=== PATIENT | male | born 1975 | race Caucasian/White ===

== ENCOUNTER 2020-11-17 23:12 | Emergency (ER) | payer OTHER ==
[~2020-11-17 23:12] MED LIST: CLEOCIN HCL150 MG PO; FLEXERIL 10 MG10 MG PO; IBUPROFEN600 MG PO; PROTONIX40 MG PO
[2020-11-18] MEDS ORDERED: ERYTHROMYCIN O3.5 GM OS (01:03)
== END 2020-11-18 01:16 | disposition home or self-care (01) ==
LOC: ER1 23:12
DX: S05.02XA Injury of conjunctiva and corneal abrasion without foreign body, left eye, initial encounter (principal); Z88.0 Allergy status to penicillin; F17.210 Nicotine dependence, cigarettes, uncomplicated; X58.XXXA Exposure to other specified factors, initial encounter
CPT/HCPCS: 99282

== ENCOUNTER 2021-05-17 07:20 | Emergency (ER) | payer OTHER ==
[~2021-05-17 07:20] MED LIST changes: +ERYTHROMYCIN O3.5 GM OS
[2021-05-17] MEDS ORDERED: CLINDAMYCIN HC150 MG PO (07:52)
== END 2021-05-17 08:00 | disposition home or self-care (01) ==
LOC: ER1 07:20
DX: L03.113 Cellulitis of right upper limb (principal); F17.210 Nicotine dependence, cigarettes, uncomplicated
CPT/HCPCS: 99283

== ENCOUNTER 2021-09-14 19:21 | Emergency (ER) | payer OTHER ==
[~2021-09-14 19:21] MED LIST changes: +CLINDAMYCIN HC150 MG PO
[2021-09-14 20:23] LABS: HEMOGLOBIN 16.8 gm/dl (14.0-17.5); RED BLOOD COUNT 5.56 M/UL (4.20-5.50); WHITE BLOOD COUNT 10.8 K/UL (4.5-11.0)
[2021-09-14 20:57] LABS: BUN/CREATININE RATIO 19 (0-10)
== END 2021-09-14 22:56 | disposition left against medical advice (07) ==
LOC: ER1 19:21
PROVIDERS: Physician Assistant
DX: I10 Essential (primary) hypertension (principal); F17.210 Nicotine dependence, cigarettes, uncomplicated; R51.9 Headache, unspecified; R11.0 Nausea; Z88.0 Allergy status to penicillin
CPT/HCPCS: 70450; 71045; 80053; 82550; 82553; 83874; 83880; 84484; 85025; 85610; 85730; 93005; 99284

== ENCOUNTER 2021-12-22 18:19 | Emergency (ER) | payer OTHER ==
[2021-12-22 19:59] LABS: HEMOGLOBIN 14.4 gm/dl (14.0-17.5); RED BLOOD COUNT 4.86 M/UL (4.20-5.50); WHITE BLOOD COUNT 11.7 K/UL (4.5-11.0)
[2021-12-22 20:35] LABS: BUN/CREATININE RATIO 19 (0-10)
[2021-12-22] MEDS ORDERED: CLINDAMYCIN HC300 MG PO (22:52)
== END 2021-12-22 23:00 | disposition home or self-care (01) ==
LOC: ER1 18:19
PROVIDERS: Physician Assistant Medical
DX: R55 Syncope and collapse (principal); L03.114 Cellulitis of left upper limb; F19.10 Other psychoactive substance abuse, uncomplicated; F17.210 Nicotine dependence, cigarettes, uncomplicated; Z88.0 Allergy status to penicillin
CPT/HCPCS: 70450; 70486; 71045; 72125; 73030; 80053; 82550; 82553; 83605; 84484; 85025; 87040; 93005; 99285

== ENCOUNTER 2022-02-18 06:10 | Emergency (ER) | payer OTHER ==
[~2022-02-18 06:10] MED LIST changes: +CLINDAMYCIN HC300 MG PO
[2022-02-18 06:51] LABS: RED BLOOD COUNT 5.64 M/UL (4.20-5.50); WHITE BLOOD COUNT 13.7 K/UL (4.5-11.0)
== END 2022-02-18 08:00 | disposition left against medical advice (07) ==
LOC: ER1 06:10
PROVIDERS: Physician Assistant
DX: S51.812A Laceration without foreign body of left forearm, initial encounter (principal); R65.11 Systemic inflammatory response syndrome (SIRS) of non-infectious origin with acute organ dysfunction; N17.9 Acute kidney failure, unspecified; F15.10 Other stimulant abuse, uncomplicated; S00.81XA Abrasion of other part of head, initial encounter; R50.9 Fever, unspecified; Z86.19 Personal history of other infectious and parasitic diseases; Z79.899 Other long term (current) drug therapy; X99.9XXA Assault by unspecified sharp object, initial encounter
CPT/HCPCS: 0240U; 71045; 80053; 80307; 81001; 82550; 82553; 83605; 83880; 84484; 85025; 86140; 87040; 87086; 90471; 90715; 93005; 99283

== ENCOUNTER 2022-02-20 06:04 | Emergency (ER) | payer OTHER ==
[2022-02-20] MEDS ORDERED: MONODOX100 MG PO (07:31)
[2022-02-20] MEDS ORDERED: ACYCLOVIR800 MG PO (07:31)
== END 2022-02-20 08:16 | disposition home or self-care (01) ==
LOC: ER1 06:04
DX: J02.9 Acute pharyngitis, unspecified (principal); Z20.2 Contact with and (suspected) exposure to infections with a predominantly sexual mode of transmission; Z88.0 Allergy status to penicillin
CPT/HCPCS: 87081; 87880; 96374; 99283; J0696

== ENCOUNTER 2022-02-24 20:25 | Emergency (ER) | payer OTHER ==
[~2022-02-24 20:25] MED LIST changes: +ACYCLOVIR800 MG PO; +MONODOX100 MG PO
[2022-02-24 23:29] LABS: RED BLOOD COUNT 4.51 M/UL (4.20-5.50)
[2022-02-24 23:30] LABS: HEMOGLOBIN 13.5 gm/dl (14.0-17.5)
[2022-02-24 23:51] LABS: BUN/CREATININE RATIO 17 (0-10)
== END 2022-02-25 01:20 | disposition home or self-care (01) ==
LOC: ER1 20:25
PROVIDERS: Physician Assistant
DX: R31.9 Hematuria, unspecified (principal); M79.10 Myalgia, unspecified site; F17.210 Nicotine dependence, cigarettes, uncomplicated; R00.0 Tachycardia, unspecified; Z20.822 Contact with and (suspected) exposure to COVID-19
CPT/HCPCS: 0240U; 80053; 81001; 82550; 82553; 83605; 83690; 83735; 84484; 85025; 85610; 85652; 85730; 86140; 87081; 87086; 87880; 99284